=== PATIENT | male | born 1980 | race Caucasian/White ===

== ENCOUNTER 2017-02-10 08:54 | Day surgery (SDC) | payer OTHER ==
--- NOTE | 2017-01-27 14:26 | History and Physical ---
History & Physical Date of Service Jan 27, 2017. History & Physical Plan of care discussed with Dr. Veliz CHIEF COMPLAINT: Neuropathic pain of the left foot. HISTORY OF PRESENT ILLNESS: Mr. Cartwright is a 36-year-old white male that is well- known to the [facility] pain service with a history of reflex sympathetic dystrophy of the left foot. Patient originally dropped a 100 pound object into his left foot last year while at work and was found to have a fractured medial cuneiform. The left foot was placed in a cam boot for 1 year and he is now using a foot splint insert. Patient does report the left foot being colder than the right. There is intermittent swelling and discoloration of the foot. He describes an aching pain along the left medial aspect of the foot and paresthesias, sharp, and coldness sensation in the toes. Patient denies any low back pain, radiculopathy, ankle pain. PAST MEDICAL HISTORY: 1. Anxiety disorder 2. Dyslipidemia 3. Gastroesophageal reflux disease 4. History of atrial fibrillation 5. Hypothyroidism 6. Obesity PAST SURGICAL HISTORY: 1. History of #2 shoulder arthroscopies SOCIAL HISTORY: He is single and living at home with his parents. Former smoker. No alcohol or illicit substance abuse. WORK HISTORY: Patient is employed at [employer] but is currently off of work due to this injury. ALLERGIES: Adhesives, duloxetine, gabapentin, venlafaxine MEDICATIONS: 1. Klonopin 1 mg twice daily as needed 2. Flexeril 10 mg at bedtime as needed 3. Fish oil 1 capsule twice daily 4. Ibuprofen 600 mg twice daily as needed 5. Synthroid 25 g one tablet daily 6. Toprol 12.5 mg daily 7. Multivitamin daily 8. Protonix 40 mg twice daily 9. Zantac 150 mg twice daily REVIEW OF SYSTEMS: Denies any constitutional, cardiac, pulmonary, neurological, GI, , extremity, endocrine, neuro, ENT, dermatological, or musculoskeletal complaints other than stated in HPI PHYSICAL EXAMINATION: VITAL SIGNS: Per admission GENERAL: Baldomero Cartwright is a an obese 36-year-old white male that appears his stated age. Speech and cognition is intact. Mood and affect is appropriate. He does not appear to be in any acute distress. HEAD: Normocephalic; atraumatic. EYES: Pupils are round, equal, and reactive to light; EOM intact. ENT: No external ear discharge or lesions. No rhinorrhea or epistaxis. No mucosal lesions. NECK: Full ROM; trachea is midline; no TTP; no cervical lymphadenopathy. PULM: Clear to auscultation. No wheezes, rales, or rhonchi. CHEST: Regular chest respiration and excursion. EXTREMITIES: There is full strength and range of motion of the left foot. Mild tenderness along the medial aspect of the left foot. The left foot is mildly colder than the left, mild edema, and pink discoloration on the left as compared to the right. No allodynia or hyperpathia. Mild paresthesias along the toes. BACK: Decreased ROM due to body habitus. No midline or facet tenderness. No SI joint tenderness. NEURO: CN II-XII grossly intact with no focal deficits noted. AAO x 3. Gait is slowed and antalgic. SKIN: No lesions, erythema, or rashes noted. ASSESSMENT: Reflex sympathetic Dystrophy of the left foot TREATMENT: Patient has preivous treatments from orthopedics including Cam foot , foot splints, and repeating imaging. Patient has also tried medications including Gabapentin, Cymbalta, Effexor, Amitriptyline, NSAIDs, and Tramadol with minimal relief. The patient did have a spinal cord stimulator trial performed on 12/15/16 and reported 60% pain relief. He was able to perform more of his daily activities with mild limitation. It is recommended that the patient proceed with a spinal cord stimulator implantation. Risks and benefits reviewed with the patient. Procedure was explained to the patient and he would like to proceed with procedure.
[2017-02-02 12:49] VITALS: BMI 48.0
--- NOTE | 2017-02-02 13:20 | PAT Medication Instructions ---
Service Date Feb 02, 2017. Current Home Medication List Clonazepam (Klonopin), 1 MG PO BID PRN for Anxiety Cyclobenzaprine Hcl (Flexeril), 10 MG PO HS PRN for Pain Fish Oil (Cary-3), 1 CAP PO QAM Ibuprofen (Motrin), 600 MG PO BID PRN for Pain Levothyroxine Sodium (Synthroid), 1 TAB PO QAM Metoprolol Succ (Toprol Xl) (Toprol-Xl), 12.5 MG PO QAM Multivitamin (Multivitamin), 1 TAB PO QAM Pantoprazole (Protonix), 40 MG PO BID Ranitidine (Zantac), 150 MG PO BID Medication Instructions For Your Scheduled Surgery - Check with surgeon for instructions: Ibuprofen (Motrin), 600 MG PO BID PRN for Pain - Hold the following medications starting 02/03/17: Fish Oil (Cary-3), 1 CAP PO QAM - Hold the following medications the morning of surgery: Ranitidine (Zantac), 150 MG PO BID Multivitamin (Multivitamin), 1 TAB PO QAM - Take the following medications the morning of surgery with a sip of water: Pantoprazole (Protonix), 40 MG PO BID Levothyroxine Sodium (Synthroid), 1 TAB PO QAM Metoprolol Succ (Toprol Xl) (Toprol-Xl), 12.5 MG PO QAM Clonazepam (Klonopin), 1 MG PO BID PRN for Anxiety - Take the following medications as scheduled the night before surgery: Ranitidine (Zantac), 150 MG PO BID Pantoprazole (Protonix), 40 MG PO BID Cyclobenzaprine Hcl (Flexeril), 10 MG PO HS PRN for Pain Clonazepam (Klonopin), 1 MG PO BID PRN for Anxiety If you have any questions please call us at [phone] (Kamille Hernandez PA-C) or [phone] or [phone]
[2017-02-02 14:16] LABS: BASO % 0.4 %; BASO ABS # 0.04 K/uL (0-0.2); COMPLETE YES; EOS % 2.9 %; HEMATOCRIT 42.7 % (42-52); IG% 0.3 %; LYMPH % 21.2 %; LYMPH ABS # 2.11 K/uL (1.2-3.4); MEAN CELL VOLUME 82.6 fL (80-100); MEAN PLATELET VOLUME 9.3 fL (7.4-10.4); MONO % 6.9 %; NEUT % 68.3 %; PLATELET COUNT 345 K/uL (130-400); RED BLOOD COUNT 5.17 M/uL (4.7-6.1); WHITE BLOOD COUNT 9.96 K/uL (4.8-10.8)
[2017-02-02 14:30] LABS: URINE APPEARANCE CLEAR (CLEAR); URINE BILIRUBIN NEG (NEG); URINE COLOR YELLOW; URINE NITRITE NEG (NEG); URINE SPECIFIC GRAVITY 1.021 (1.000-1.030); UROBILINOGEN NEG (NEG)
[2017-02-02 14:31] LABS: MANUAL MICROSCOPIC REQUIRED? NO; REVIEW REQ? NO
[2017-02-02 14:48] LABS: BUN/CREATININE RATIO 12.4 (10-20); CALCIUM 9.6 mg/dl (8.5-10.1); CREATININE 1.2 mg/dl (0.60-1.40); POTASSIUM 3.8 mmol/L (3.5-5.1)
[~2017-02-10] VITALS: Ht 198.1 cm; Wt 188.2 kg
[~2017-02-10 08:54] MED LIST: ATROPINE SULFATE 0.1 MG/ML 5ML SYR IV PRN; CEFAZOLIN 2000 MG/60 ML D5W 50 ML IV SCH; CEFAZOLIN 3000 MG/65 ML D5W IV SCH; CLON1TAB3 PO; CYCL10TA6 PO; EpHEDrine SULFATE INJ 50 MG/ML AMP IV PRN; FENTANYL CITRATE INJ 50 MCG/1 ML 2 ML VIAL IV PRN; IBUP-1450 PO; LACTATED RINGER'S 1000ML 1,000 ML IV SCH; LEVO25TA PO; METO25TA3 PO; MULT-506 PO; OMEG10007 PO; ONDANSETRON INJ 2 MG/ML 2 ML VIAL IV PRN; PANT40TA PO; ZNTT/150 PO
[2017-02-10] MEDS ORDERED: MELA1TAB5 PO (09:15)
[2017-02-10] MEDS ORDERED: DIPH1TAB PO (09:16)
[2017-02-10 09:28] VITALS: BP 138/89; PULSE 112; TEMP 37; O2SAT 98; Ht 198.1 cm; Wt 188.2 kg
[2017-02-10] MEDS ORDERED: SILV1CRE73 TOP (09:49)
[2017-02-10] MEDS ORDERED: PROPOFOL IV EMULSION 10 MG/ML 20 ML VIAL IV ONE ×5 (10:00→13:48)
[2017-02-10] MEDS ORDERED: LIDOCAINE HCL 2% 2 ML VIAL (20MG/ML) ONE (10:00)
[2017-02-10] MEDS ORDERED: MIDAZOLAM HCL 1 MG/ML 2ML VIAL ONE ×3 (10:01→13:14)
[2017-02-10] MEDS ORDERED: FENTANYL CITRATE INJ 50 MCG/1 ML 2 ML VIAL ONE (10:01)
[2017-02-10] MEDS ORDERED: NURSING VERBAL MED ORDER ONE (10:30)
[2017-02-10] MEDS ORDERED: REMIFENTANIL 1 MG VIAL ONE (10:32)
--- NOTE | 2017-02-10 11:08 | History & Physical Bridge Note ---
H&P Re-Evaluation Bridge Note: I have examined the patient, reviewed the History & Physical and in the interval since the performance of the History & Physical I have noted the following changes of clinical significance: No changes noted Patient was reevaluated this morning. No changes noted in his history, physical examination and his pain complaints. Pertinent laboratory studies were reviewed. Continues experience left foot neuropathic pain. Once again, the inherent risks, possible complications, expected benefits and treatment lives has been discussed with the patient. He elects to proceed. Informed consent was obtained.
[2017-02-10] MEDS ORDERED: NEOMYCIN/POLYMYX/BACITR OINT 15 GM TUBE ONE (11:16)
[2017-02-10] MEDS ORDERED: BACITRACIN 50000 UNIT VIAL ONE (11:16)
[2017-02-10] MEDS ORDERED: LIDOCAINE HCL 2% LOCAL 50ML VIAL ONE (11:17)
[2017-02-10] MEDS ORDERED: ONDANSETRON INJ 2 MG/ML 2 ML VIAL ONE (12:50)
[2017-02-10] MEDS ORDERED: LABETALOL HCL IV 5 MG/ML 20ML IV ONE (13:17)
[2017-02-10] MEDS: LIDOCAINE 2% INJ ONE ×2 (13:26→13:39)
[2017-02-10] MEDS: BUPIVACAINE/EPINEPHRINE 0.25% 1:200,000 30 ML VIAL ONE ×2 (13:35→13:39)
--- NOTE | 2017-02-10 14:13 | [facility] Operative Report ---
Operative Report Operative Date Feb 10, 2017. Pre-Operative Diagnosis Left foot Neuropathis pain. Post-Operative Diagnosis Same Surgeon Dr Veliz Motel Manager Surgeon(s) Dexter Bloom PA-C Estimated Blood Loss 5ML Findings See below Specimens None per surgeon Drains None Anesthesia MAC Complication(s) None Disposition Recovery Room / PACU Description of Procedure INSERTION OF SPINAL CORD STIMULATOR LEAD AND PULSE GENERATOR PREOPERATIVE DIAGNOSIS: Neuropathic pain left foot. POSTOPERATIVE DIAGNOSIS: Same. PROCEDURE PERFORMED: 1. Percutaneous insertion of a trial Medtronic Octrode lead using biplanar fluoroscopy. 2. Interrogation and reprogramming of spinal cord stimulator lead. SURGEON: Dr. Veliz. ANESTHESIA: Monitor incision care. LEADS PLACED: Mid body of T9. Prior to starting, the Patients diagnosis and the procedure were reviewed with the patient in detail. Possible risks and complications including infection, bleeding, damage to surrounding structures and increased pain were discussed. Alternative therapies were also reviewed. Patients questions were answered and they agreed to proceed. Informed consent was obtained. Allergies and medication list was reviewed. The patient was brought to the procedure room and placed in. PROM position. Immediately prior to starting the procedure, a time out was conducted with the staff and the patient where the patient was identified, proposed procedure was verified, consent was reviewed and the proper site for the planned procedure was identified. Pre-procedure antibiotic was given consisting of cefazolin, 4 g. Patient was given any intravenous conscious sedation by members of the Anesthesia Department. Constant verbal contact was maintained throughout the procedure. Biplanar fluoroscopy was used to assist in placement of the needle as well as to evaluate final needle position prior to the injection. On examination, no signs of skin breakdown or infection were noted at the injection site. The site was cleansed with DuraPrep followed by Betadine. Sterile drapes were applied. Patient tolerated the procedure uneventfully without complications. Patient was brought to recovery area and observed. Vital signs were stable prior to discharge. Patient was discharged home with standard discharge instructions after approximately 30 minutes with an adult automation driver. Thoracolumbar spine was prepped with DuraPrep followed by Betadine solution and draped in sterile fashion. Ioban was placed over the operative area. Next the T12/L1 interspace was identified in a true AP view for epidural access. The skin and subcutaneous tissues over the left pedicle of L2 vertebra was anesthetized with to present Xylocaine MPF all the way to the lamina using a 22- gauge, 3.5 spinal needle. A 14 gauge Medtronic Tuohy epidural needle was inserted until it made contact with the lamina of L1 and walked off the lamina into the T12/L1 interspace. Loss of resistance to wire technique was utilized for entrance into the epidural space. Next an Octrode lead was passed through the Tuohy epidural needle and positioned in the midline so that the 0 electrode was located at the mid body of the of T9 vertebra. At this point, the patient was questioned and coverage of the painful area was confirmed. The confirmation of the covered area was obtained multiple times throughout the trial. No CSF, blood or paresthesia were noted during placement of the lead. Once lead position was optimized, an incision was made at the needle entry site with a scalpel. Hemostasis obtained using electrocautery. Dorsal lumbar fascia was exposed and using the anchoring device, both leads were anchored to the dorsal lumbar fascia using 0 silk sutures. Next, in the right flank a pocket was created using scalpel electrocautery. Hemostasis was obtained using electrocautery. Next, using a tunneling device from the pocket site to the back incision, the leads were brought to the pocket site. Leads were connected to a rechargeable pulse generator. Impedance checked and found to be appropriate. The generator was secured to the fascia using 0 Prolene sutures. Both wounds were irrigated with bacitracin-containing normal saline. Both wounds were closed in similar fashion using continuous 0 V lock suture for deeper layer and running 3-0 V lock suture for subcuticular layer. Prineo to the skin. 4 x 4 gauze and pressure dressing was applied to both sites. Abdominal binder was placed. Just in was then taken to the recovery room. No complications occurred. The stimulus programmed in the recovery room. I attest to the content of the Intraoperative Record and any orders documented therein. Any exceptions are noted below.
--- NOTE | 2017-02-10 14:14 | Discharge Instructions ---
Discharge Instructions Date of Service Feb 10, 2017. Admission Reason for Admission: Left Foot Reflex Sympathetic Dystrophy, Chronic Pa Discharge Discharge Diagnosis / Problem: left foot neuropathic pain. Discharge Goals Goal(s): Decrease discomfort, Improve function Activity Recommendations Activity Limitations: as noted below Lifting Limitations: no more than 5 pounds, no more than 10 pounds Exercise/Sports Limitations: gradually increase as tolerated, until after follow-up appointment Shower/Bathe: may shower/bathe in 3 days Driving or Machine Use: resume 3 days after discharge Weightbearing Status: Left partial . Instructions / Follow-Up Instructions / Follow-Up 1. Change dressings daily. Apply sterile, dry gauze and the wound site and apply tape over the dressing. 2. No showers for 3 days. May use washcloth. Can take shower after 3 days but do not route the towel over the sensation to dry. Generally dab the towel over the incision to dry. 3. Call [facility] ([phone]) if he experienced any fevers, chills, drainage or signs of infection at the incision site. After hours, go to the emergency room. 4. Wear abdominal binder. 5. Do not lift more than 5 pounds or perform any repetitive bending, reaching overhead or twisting. Current Hospital Diet Patient's current hospital diet: Discharge Diet Recommended Diet: Regular Diet Procedures Procedures Performed: Insertion of Medtronic spinal cord stimulator system Pending Studies Studies pending at discharge: no Medical Emergencies . Who to Call and When: Medical Emergencies: If at any time you feel your situation is an emergency, please call 911 immediately. . Non-Emergent Contact Non-Emergency issues call your: Primary Care Provider Call Non-Emergent contact if: temperature is above 101, your pain is not controlled, your pain is worsening, wound has increased drainage, wound has increased redness, wound has increased pain . "Provider Documentation" section prepared by Dann Veliz. VTE Core Measure Inpt VTE Proph given/why not?: Contraindicated [place] Drug Monitoring Program Search Results: patient reviewed within database
[2017-02-10] MEDS ORDERED: HYDROCODONE/ACETAMINOPHEN 7.5/325MG TAB PO PRN (14:15)
--- NOTE | 2017-02-10 14:37 | Anesthesiology Progress Note ---
Anesthesia Post Op Note Date & Time Feb 10, 2017 at 14:37 Vital Signs Pain Intensity: 4 Vital Signs Past 12 Hours Date Time Temp Pulse Resp B/P Pulse Ox O2 Delivery O2 Flow Rate FiO2 02/10/17 14:25 105 19 150/79 96 Room Air 02/10/17 14:18 37.1 107 16 126/89 98 Room Air 02/10/17 09:28 37 112 20 138/89 98 Room Air Notes Mental Status: alert / awake / arousable, participated in evaluation Pt Amnestic to Procedure: Yes Nausea / Vomiting: adequately controlled Pain: adequately controlled Airway Patency, RR, SpO2: stable & adequate BP & HR: stable & adequate Hydration State: stable & adequate Anesthetic Complications: no major complications apparent
[2017-02-10 15:15] VITALS: BP 147/81; PULSE 100; TEMP 37; O2SAT 96
--- NOTE | 2017-02-10 15:17 | DIAGNOSTIC IMAGING REPORT ---
INTRAOPERATIVE RADIOGRAPHS CLINICAL HISTORY: Spinal cord stimulator implantation. Fluoroscopy time: 155 seconds. FINDINGS: 4 spot fluoroscopic views of the thoracolumbar spine are presented. A spinal cord stimulator lead has been placed and projects over a thoracic vertebral level. This cannot be further localized on these spot views. The lead appears intact as visualized. IMPRESSION: Intraoperative images from spinal cord stimulator lead placement. See operative report for detailed findings. Electronically signed by: Dexter Murphy M.D. 02/10/2017 3:16 PM Dictated Date/Time: 02/10/2017 3:15 PM
[2017-02-10] MEDS ORDERED: HYDROCODONE/ACETAMOPHEN 5/325MG TAB ONE (15:34)
--- NOTE | 2017-02-10 15:57 | DIAGNOSTIC IMAGING REPORT ---
THORACOLUMBAR SPINE 2 VIEWS CLINICAL HISTORY: evaluate lead position stimulator placement. COMPARISON STUDY: No previous studies for comparison. FINDINGS: There is a spinal stimulator present. The tip is visualized at the mid T9 level. IMPRESSION: The spinal stimulator is positioned with its tip at the mid T9 level. Electronically signed by: Janes Vizcaino M.D. 02/10/2017 3:56 PM Dictated Date/Time: 02/10/2017 3:54 PM
[2017-02-10 16:00] VITALS: BP 141/76; PULSE 101; O2SAT 96
[2017-02-10 16:20] VITALS: BP 151/93; PULSE 101; O2SAT 96
[2017-02-18] MEDS ORDERED: HYDR-5688 PO (13:43)
[2017-02-25] MEDS ORDERED: TIZA4CAP PO (14:38)
[2017-04-30] MEDS ORDERED: ABL/5 PO (12:56)
[2017-04-30] MEDS ORDERED: OMEG10007 PO (12:57)
== END 2017-02-10 16:30 | disposition home or self-care (01) ==
LOC: C.ACU 08:54
PROVIDERS: ATTEND Anesthesiology
DX: G90.522 Complex regional pain syndrome I of left lower limb (principal); G62.9 Polyneuropathy, unspecified; K21.9 Gastro-esophageal reflux disease without esophagitis; E78.5 Hyperlipidemia, unspecified; E66.9 Obesity, unspecified; E03.9 Hypothyroidism, unspecified; Z87.891 Personal history of nicotine dependence

== ENCOUNTER → 2017-02-25 | Outpatient (CLI) | payer OTHER ==
[~2017-02-25] MED LIST changes: +ABL/5 PO; -ATROPINE SULFATE 0.1 MG/ML 5ML SYR IV PRN; -CEFAZOLIN 2000 MG/60 ML D5W 50 ML IV SCH; -CEFAZOLIN 3000 MG/65 ML D5W IV SCH; +DIPH1TAB87 PO; -EpHEDrine SULFATE INJ 50 MG/ML AMP IV PRN; -FENTANYL CITRATE INJ 50 MCG/1 ML 2 ML VIAL IV PRN; +HYDR-5688 PO; -LACTATED RINGER'S 1000ML 1,000 ML IV SCH; +MELA1TAB5 PO; -ONDANSETRON INJ 2 MG/ML 2 ML VIAL IV PRN; +SILV1CRE73 TOP; +TIZA4CAP PO
== END ==
LOC: C.PAIN 13:30

== ENCOUNTER → 2017-04-03 | Outpatient (CLI) | payer OTHER ==
[~2017-04-03] MED LIST changes: -CYCL10TA6 PO; -HYDR-5688 PO; -MELA1TAB5 PO; -SILV1CRE73 TOP
== END ==
LOC: C.PAIN 10:59

== ENCOUNTER → 2017-05-04 | Day surgery (SDC) | payer OTHER ==
[2017-04-30 12:58] VITALS: Ht 198.1 cm; Wt 181.8 kg
[~2017-05-04] VITALS: Ht 198.1 cm; Wt 181.8 kg
[~2017-05-04] MED LIST changes: +KETAMINE HCL INJ 50 MG/ML 10 ML VIAL ONE; +LIDOCAINE HCL 2% 2 ML VIAL (20MG/ML) ONE; +PROPOFOL IV EMULSION 10 MG/ML 20 ML VIAL IV ONE; +SODIUM CHLORIDE 0.9% 500ML 500 ML IV ONE; -TIZA4CAP PO
--- NOTE | 2017-05-04 08:37 | Endo History and Physical ---
History & Physical Date of Service: May 04, 2017. Chief Complaint: EPIGASTRIC PAIN Referring Physician: DR. ALMONTE History of Present Illness 37 yo CM who presents for EGD secondary to epigastric abdominal pain. Past Medical History Atrial Fibrillation, Anxiety, Reflux, High Cholesterol Past Surgical History Hx Cardiac Surgery: Yes (CARDIOVERSION X2) Hx Internal Defibrillator: No Hx Pacemaker: No Hx Abdominal Surgery: No Hx of Implantable Prosthesis: No Hx Post-Op Nausea and Vomiting: No Hx Cancer Surgery: No Hx Thoracic Surgery: No Hx Orthopedic: Yes (RT SHOULDER SURGERY X2) Hx Urinary Tract Surgery: No Family History IBD Social History Smoking Status: Former Smoker Hx Substance Use: No Hx Alcohol Use: Yes (QUIT 01/2016) Allergies Coded Allergies: CI Pigment Blue 63 (Verified Allergy, Unknown, "I WANTED TO RIP MY SKIN OFF", 04/30/17) Duloxetine (Verified Allergy, Unknown, "I WANTED TO RIP MY SKIN OFF", ) Gabapentin (Verified Allergy, Unknown, "MAKES ME FEEL WEIRD, SWEATS", ) Venlafaxine (Verified Allergy, Unknown, "MAKES ME STIR CRAZY", 04/30/17) Adhesives (Verified Adverse Reaction, Unknown, RASH, 04/30/17) Uncoded Allergies: BLOOD PRESSURE CUFFS (Adverse Reaction, Intermediate, RASH, 02/10/17) Current Medications Reported Home Medications Medications Dose Route/Sig Max Daily Dose Days Date Category Lytle-3 (Fish Oil) 1 Ea Cap 1 Cap PO DAILY AFTERNOON 04/30/17 Reported Abilify (Aripiprazole) 5 Mg Tab 5 Mg PO HS 04/30/17 Reported Benadryl Allergy (Diphenhydramine Hcl) 25 Mg Tab 2 Tabs PO Q6 PRN 02/10/17 Reported Synthroid (Levothyroxine Sodium) 25 Mcg Tab 1 Tab PO QAM 12/19/16 Reported Toprol-Xl (Metoprolol Succinate) 25 Mg Tabcr 12.5 Mg PO QAM 08/18/16 Reported Klonopin (Clonazepam) 1 Mg Tab 1 Mg PO BID PRN 07/22/16 Reported Multivitamin (Multivitamins) Tab 1 Tab PO QAM 03/24/16 Reported Protonix (Pantoprazole Sodium) 40 Mg Tab 40 Mg PO BID 03/24/16 Reported Motrin (Ibuprofen) 600 Mg Tab 600 Mg PO BID PRN 03/24/16 Reported Zantac (Ranitidine HCl) 150 Mg Tab 150 Mg PO BID 03/24/16 Reported Vital Signs Weight (Kilograms): 181.82 Height (Feet): 6 Height (Inches): 6 Date Time Temp Pulse Resp B/P (MAP) Pulse Ox O2 Delivery O2 Flow Rate FiO2 05/04/17 08:04 36.8 90 16 142/85 (104) 97 Room Air Physical Exam General Appearance: WD/WN, no apparent distress Respiratory/Chest: Auscultation: breath sounds normal Cardiovascular: Heart Auscultation: RRR Abdomen: Bowel Sounds: normal Inspection & Palpation: soft, non-distended, no tenderness, guarding & rebound Assessment and Plan Assessment: 37 yo CM who presents for EGD secondary to epigastric abdominal pain. Plan: Proceed with EGD.
--- NOTE | 2017-05-04 08:51 | Discharge Instructions ---
Endoscopy Patient Instructions Date / Procedure(s) Performed May 04, 2017. EGD Allergy Information Coded Allergies: CI Pigment Blue 63 (Verified Allergy, Unknown, "I WANTED TO RIP MY SKIN OFF", 04/30/17) Duloxetine (Verified Allergy, Unknown, "I WANTED TO RIP MY SKIN OFF", ) Gabapentin (Verified Allergy, Unknown, "MAKES ME FEEL WEIRD, SWEATS", ) Venlafaxine (Verified Allergy, Unknown, "MAKES ME STIR CRAZY", 04/30/17) Adhesives (Verified Adverse Reaction, Unknown, RASH, 04/30/17) Uncoded Allergies: BLOOD PRESSURE CUFFS (Adverse Reaction, Intermediate, RASH, 02/10/17) Discharge Date / Findings May 04, 2017. Erosive gastritis s/p biopsies Medication Instructions OK to resume all medications today as prescribed Medications Dose Route/Sig Max Daily Dose Days Date Category Ridgeway-3 (Fish Oil) 1 Ea Cap 1 Cap PO DAILY AFTERNOON 04/30/17 Reported Abilify (Aripiprazole) 5 Mg Tab 5 Mg PO HS 04/30/17 Reported Benadryl Allergy (Diphenhydramine Hcl) 25 Mg Tab 2 Tabs PO Q6 PRN 02/10/17 Reported Synthroid (Levothyroxine Sodium) 25 Mcg Tab 1 Tab PO QAM 12/19/16 Reported Toprol-Xl (Metoprolol Succinate) 25 Mg Tabcr 12.5 Mg PO QAM 08/18/16 Reported Klonopin (Clonazepam) 1 Mg Tab 1 Mg PO BID PRN 07/22/16 Reported Multivitamin (Multivitamins) Tab 1 Tab PO QAM 03/24/16 Reported Protonix (Pantoprazole Sodium) 40 Mg Tab 40 Mg PO BID 03/24/16 Reported Motrin (Ibuprofen) 600 Mg Tab 600 Mg PO BID PRN 03/24/16 Reported Zantac (Ranitidine HCl) 150 Mg Tab 150 Mg PO BID 03/24/16 Reported Provider Instructions Activity Restrictions - No exercising or heavy lifting for 24 hours. - Do not drink alcohol the day of the procedure. - Do not drive a car or operate machinery until the day after the procedure. - Do not make any important decisions or sign important papers in 24 hours after the procedure. Following Day: - Return to full activity which may include returning to work/school. Diet Start your diet with liquids and light foods (jello, soup, juice, toast). Then eat your usual diet if not nauseated. Treatment For Common After Affects For mild abdominal pain, bloating, or excessive gas: - Rest - Eat lightly - Lie on right side Follow-Up Information Follow-up with DR. ALMONTE as scheduled Anesthesia Information What You Should Know You have had a procedure that required some medicine to reduce anxiety and discomfort. This treatment is called moderate sedation. After receiving the treatment, you may be sleepy, but you will be able to breathe on your own. The effects of the treatment may last for several hours. Follow these instructions along with Activity/Diet recommendations noted above: * Do NOT do anything where dizziness or clumsiness would be dangerous. * Rest quietly at home today, then you can be up and about tomorrow. * Have a responsible person stay with you the rest of today. * You may have had an I.V. today. If so, you may take the dressing off later today. Recommendations Call your doctor if: * Trouble breathing * Continuous vomiting for more than 24 hours * Temperature above 101 degrees * Severe abdominal pain or bloating * Pain not relieved by pain medicine ordered * There is increased drainage or redness from any incision * A large amount of rectal bleeding greater than 2-3 tablespoons. (If you had a polyp/s removed or have hemorrhoids, a small amount of blood - from the rectum is to be expected.) * You have any unanswered questions or concerns. IN THE EVENT OF A SERIOUS EMERGENCY, GO TO THE NEAREST EMERGENCY ROOM Your discharge instructions were prepared by provider Edwar Boogie. Patient Instructions Signature Page Baldomero Cartwright Patient (or Guardian) Signature/Date: I have read and understand the instructions given to me by my caregivers. Caregiver/RN/Doctor Signature/Date: The above-named patient and/or guardian has received patient instructions on this date. + Original Patient Signature Page (only) stays with chart. Please make copy for patient.
--- NOTE | 2017-05-04 08:59 | GI REPORT ---
Procedure Date: 05/04/2017 8:10 AM Procedure: Upper GI endoscopy Indications: Epigastric abdominal pain Medicines: Monitored Anesthesia Care Complications: No immediate complications. Estimated Blood Loss: Estimated blood loss: none. Procedure: Pre-Anesthesia Assessment: - Prior to the procedure, a History and Physical was performed, and patient medications and allergies were reviewed. The patient's tolerance of previous anesthesia was also reviewed. The risks and benefits of the procedure and the sedation options and risks were discussed with the patient. All questions were answered, and informed consent was obtained. Prior Anticoagulants: The patient has taken no previous anticoagulant or antiplatelet agents. ASA Grade Assessment: III - A patient with severe systemic disease. After reviewing the risks and benefits, the patient was deemed in satisfactory condition to undergo the procedure. After obtaining informed consent, the endoscope was passed under direct vision. Throughout the procedure, the patient's blood pressure, pulse, and oxygen saturations were monitored continuously. The scope was introduced through the mouth, and advanced to the second part of duodenum. The upper GI endoscopy was accomplished without difficulty. The patient tolerated the procedure well. Findings: The esophagus was normal. Localized moderate inflammation characterized by erosions was found in the gastric antrum. Biopsies were taken with a cold forceps for histology. The examined duodenum was normal. Impression: - Normal esophagus. - Gastritis. Biopsied. - Normal examined duodenum. Recommendation: - Resume previous diet. - Continue present medications. - Await pathology results. - Return to primary care physician as previously scheduled. Edwar Boogie DO 05/04/2017 8:58:52 AM This report has been signed electronically. Note Initiated On: 05/04/2017 8:10 AM I attest to the content of the Intraoperative Record and orders documented therein, exceptions below
[2017-05-04 09:21] VITALS: BP 129/77; PULSE 80; O2SAT 97
--- NOTE | 2017-05-04 09:30 | Anesthesiology Progress Note ---
Anesthesia Post Op Note Date & Time May 04, 2017 at 09:30 Vital Signs Pain Intensity: 0 Vital Signs Past 12 Hours Date Time Temp Pulse Resp B/P (MAP) Pulse Ox O2 Delivery O2 Flow Rate FiO2 05/04/17 09:21 80 16 129/77 (94) 97 Room Air 05/04/17 09:06 83 16 133/80 (97) 98 Room Air 05/04/17 08:51 100 16 148/94 (112) 97 Room Air 05/04/17 08:04 36.8 90 16 142/85 (104) 97 Room Air Notes Mental Status: alert / awake / arousable, participated in evaluation Pt Amnestic to Procedure: Yes Nausea / Vomiting: adequately controlled Pain: adequately controlled Airway Patency, RR, SpO2: stable & adequate BP & HR: stable & adequate Hydration State: stable & adequate Anesthetic Complications: no major complications apparent
== END | disposition home or self-care (01) ==
LOC: C.GI 07:27
PROVIDERS: ATTEND Internal Medicine
DX: K29.50 Unspecified chronic gastritis without bleeding (principal); K21.9 Gastro-esophageal reflux disease without esophagitis; E66.01 Morbid (severe) obesity due to excess calories; I10 Essential (primary) hypertension; I48.91 Unspecified atrial fibrillation; Z98.890 Other specified postprocedural states; Z87.891 Personal history of nicotine dependence; Z68.42 Body mass index [BMI] 45.0-49.9, adult